=== PATIENT | male | born 1970 | race Caucasian/White ===

== ENCOUNTER 2018-11-16 09:58 | Observation (INO) | payer MEDICAID, OTHER, SELFPAY ==
[~2018-11-16] VITALS: Ht 180.3 cm; Wt 111.2 kg
--- NOTE | 2018-11-16 10:33 | NUR ---
First contact with pt. IMMANUEL. Pt resting on gurney connected to NIBP, continous pulse ox, and global account executive. Call light within reach. Pt states, "I have had dental pain since Wednesday or Wednesday, I have horrible teeth, I am on blood thinners, and since Wednesday I have had left sided chest pain and left shoulder pain." Per pt's , "he is also a diabetic and has high blood pressure". Pt states, "I have had two DVTs, one in each leg." Pt denies cp at this time, sob, n/v/d, or diaphoresis. All safety measures in place.
[2018-11-16] MEDS ORDERED: GLIM4TAB2 PO (10:46)
[2018-11-16] MEDS ORDERED: SIMV5TAB14 PO (10:46)
[2018-11-16] MEDS ORDERED: SITA100T PO (10:46)
[2018-11-16] MEDS ORDERED: RIVA10TA2 PO (10:46)
[2018-11-16] MEDS ORDERED: LISI1TAB7 PO (10:46)
[2018-11-16] MEDS ORDERED: METF500T17 PO (10:46)
[2018-11-16] MEDS ORDERED: OMNIPAQUE 350 MG/ML, 100ML BOTTLE ONE (11:22)
[2018-11-16] MEDS ORDERED: ASPIRIN 81 MG TABLET CHEW PO ONE (11:30)
[2018-11-16 11:40] LABS: BASOPHILS # (AUTO) 0.05 x10^3/uL (0-0.1); BASOPHILS % (AUTO) 1 % (0-1); EOSINOPHILS # (AUTO) 0.18 x10^3/uL (0-0.4); EOSINOPHILS % (AUTO) 2 % (1-7); LYMPHOCYTES # (AUTO) 2.68 x10^3/uL (1-3.4); LYMPHOCYTES % (AUTO) 30 % (22-44); MD NO; MEAN CORPUSCULAR HEMOGLOBIN 31.9 pg (27.5-34.5); MEAN CORPUSCULAR HGB CONC 35.2 g/dL (33.2-36.2); MEAN CORPUSCULAR VOLUME 90.7 fL (81-97); MEAN PLATELET VOLUME 10.5 fL (7.4-10.4); MONOCYTES # (AUTO) 0.85 x10^3/uL (0.2-0.8); MONOCYTES % (AUTO) 9 % (2-9); NEUTROPHILS # (AUTO) 5.28 x10^3/uL (1.8-6.8); NEUTROPHILS % (AUTO) 58 % (42-75); PLATELET COUNT 171 x10^3/uL (130-400); RED BLOOD COUNT 5.41 x10^6/uL (4.38-5.82); RED CELL DISTRIBUTION WIDTH 12.8 % (9.4-14.8)
--- NOTE | 2018-11-16 11:47 | NUR ---
CT PENDING LAB RESULTS
[2018-11-16] MEDS ORDERED: ASPIRIN 81 MG TABLET CHEW ONE (11:49)
[2018-11-16 11:52] LABS: ALBUMIN 3.9 g/dL (3.4-5.0); ANION GAP 6 mmol/L (5-15); CALCIUM 9.1 mg/dL (8.5-10.1); CHLORIDE 104 mmol/L (98-107); CREATININE 0.89 mg/dL (0.7-1.3)
[2018-11-16 11:55] LABS: TROPONIN I < 0.015 ng/mL (0.000-0.045)
[2018-11-16] MEDS ORDERED: SODIUM CHLORIDE FLUSH 10ML SYR IVF ONE (13:00)
[2018-11-16] MEDS ORDERED: D5%-0.45NACL+KCL 20MEQ 1,000 ML IV SCH (13:24)
[2018-11-16] MEDS ORDERED: OXYcodone IR 5MG TABLET PO PRN (13:30)
[2018-11-16] MEDS ORDERED: ONDANSETRON 2MG/ML, 2ML IVPush PRN (13:30)
[2018-11-16] MEDS ORDERED: hydrALAzine 20 MG/ML, 1ML IVPush PRN (13:30)
[2018-11-16] MEDS ORDERED: MORPHINE SULFATE 4 MG/ML, 1ML IV PRN (14:00)
[2018-11-16 14:19] LABS: HEMOGLOBIN A1C 8.2 % (4.2-6.3)
[2018-11-16 14:21] LABS: CHOL/HDL RATIO 3.3; LDL/HDL RATIO 1.7 (0.5-3.0)
[2018-11-16] MEDS ORDERED: NS + 20MEQ KCL 1,000 ML IV ONE (14:28)
[2018-11-16] MEDS: NS + 20MEQ KCL 1,000 ML IV SCH (14:30)
--- NOTE | 2018-11-16 15:00 | NUR ---
REPORT FROM SILVESTRE REECE. PT LAYING IN [facility], NAD NOTED, ON PHONE. IVF INFUSING PER ORDER. BP/SPO2/ECG MONITORING IN PLACE. NSR ON MONITOR
--- NOTE | 2018-11-16 15:59 | NUR ---
PT FINISHED 100% OF CARDIAC COMPLIANT MEAL TRAY. PT AMBULATED STEADILY TO BATHROOM WO ASSISTANCE. PT REPORTS 2/10 PAIN, DENIES NEED FOR PAIN MEDICATIONS.
[2018-11-16] MEDS ORDERED: KETOROLAC 30 MG/1 ML ONE (16:14)
[2018-11-16] MEDS ORDERED: ACETAMINOPHEN 325 MG TABLET ONE (16:14)
[2018-11-16] MEDS: KETOROLAC 30 MG/1 ML IM PRN (16:17)
[2018-11-16] MEDS: ACETAMINOPHEN 325 MG TABLET PO PRN (16:17)
--- NOTE | 2018-11-16 16:20 | NUR ---
PT MEDICATED PER EMAR FOR MODERATE DENTAL PAIN
--- NOTE | 2018-11-16 17:06 | NUR ---
PT MOVED TO BEDSIDE RECLINER FOR COMFORT. PT REPORTS IMPROVEMENT IN CHRONIC BACK PAIN WITH CHAIR. MEAL TRAY PROVIDED. FAMILY AT BEDSIDE.
--- NOTE | 2018-11-16 17:52 | NUR ---
REPORT TO SILVESTRE PEREZ ON TELE. PT PREPARED FOR TRANSPORT
[2018-11-16 17:55] LABS: TROPONIN I < 0.015 ng/mL (0.000-0.045)
[2018-11-16 20:22] VITALS: BP 118/74
[2018-11-16] MEDS ORDERED: LISINOPRIL 20 MG TABLET PO SCH (21:00)
[2018-11-16] MEDS ORDERED: SIMVASTATIN 5 MG TABLET PO SCH (21:00)
[2018-11-16] MEDS ORDERED: GLIMEPIRIDE 4 MG TABLET PO SCH (21:00)
[2018-11-16] MEDS: RIVAROXABAN 10 MG TABLET PO SCH ×2 (21:12→21:15)
[2018-11-17] MEDS: NS + 20MEQ KCL 1,000 ML IV SCH (00:34)
[2018-11-17 01:04] VITALS: BP 100/61
[2018-11-17] MEDS: KETOROLAC 30 MG/1 ML IM PRN (03:48)
[2018-11-17] MEDS: ACETAMINOPHEN 325 MG TABLET PO PRN (03:51)
[2018-11-17] MEDS ORDERED: ASPIRIN 325 MG TABLET EC PO SCH (06:00)
[2018-11-17 06:14] LABS: BASOPHILS # (AUTO) 0.05 x10^3/uL (0-0.1); BASOPHILS % (AUTO) 1 % (0-1); EOSINOPHILS # (AUTO) 0.22 x10^3/uL (0-0.4); EOSINOPHILS % (AUTO) 2 % (1-7); LYMPHOCYTES % (AUTO) 28 % (22-44); MD NO; MEAN CORPUSCULAR HEMOGLOBIN 31.6 pg (27.5-34.5); MEAN CORPUSCULAR HGB CONC 34.9 g/dL (33.2-36.2); MEAN CORPUSCULAR VOLUME 90.7 fL (81-97); MEAN PLATELET VOLUME 10.3 fL (7.4-10.4); MONOCYTES # (AUTO) 0.96 x10^3/uL (0.2-0.8); MONOCYTES % (AUTO) 9 % (2-9); NEUTROPHILS # (AUTO) 6.07 x10^3/uL (1.8-6.8); NEUTROPHILS % (AUTO) 60 % (42-75); PLATELET COUNT 150 x10^3/uL (130-400); RED BLOOD COUNT 4.94 x10^6/uL (4.38-5.82); RED CELL DISTRIBUTION WIDTH 13.2 % (9.4-14.8)
[2018-11-17 06:27] LABS: ANION GAP 5 mmol/L (5-15); CALCIUM 8.4 mg/dL (8.5-10.1); CHLORIDE 112 mmol/L (98-107)
[2018-11-17 06:34] LABS: CREATININE 1.02 mg/dL (0.7-1.3); TROPONIN I < 0.015 ng/mL (0.000-0.045)
[2018-11-17 07:44] VITALS: BP 112/72
[2018-11-17] MEDS ORDERED: ACETAMINOPHEN 325 MG TABLET PO PRN (08:30)
[2018-11-17] MEDS ORDERED: MAALOX/HYOSCYAMINE/LIDOCAINE 45 ML BTL PO ONE (08:30)
[2018-11-17] MEDS ORDERED: MORPHINE SULFATE 4 MG/ML, 1ML IV PRN (08:30)
[2018-11-17] MEDS ORDERED: HYDROCHLOROTHIAZIDE 25 MG TABLET PO SCH (09:00)
[2018-11-17] MEDS ORDERED: METF500T17 PO (10:22)
[2018-11-17 12:35] VITALS: BP 116/77
[2018-11-17] MEDS ORDERED: KETOROLAC 30 MG/1 ML IM PRN (13:30)
[2018-11-17] MEDS ORDERED: metFORMIN 850 MG TABLET PO SCH (17:00)
== END 2018-11-17 16:00 | disposition home or self-care (01) ==
LOC: ED 12:08 → EDIP 13:16 → INTOOBSV 13:16 → 5SO 17:55 → DCLOUNGE 11-17 15:50
PROVIDERS: ADMIT Internal Medicine; ATTEND Internal Medicine
DX: R07.89 Other chest pain (principal); E11.65 Type 2 diabetes mellitus with hyperglycemia; I10 Essential (primary) hypertension; E66.9 Obesity, unspecified; E78.5 Hyperlipidemia, unspecified; F17.200 Nicotine dependence, unspecified, uncomplicated; Z79.01 Long term (current) use of anticoagulants; Z80.1 Family history of malignant neoplasm of trachea, bronchus and lung; Z82.49 Family history of ischemic heart disease and other diseases of the circulatory system; Z83.3 Family history of diabetes mellitus; Z86.711 Personal history of pulmonary embolism; Z86.718 Personal history of other venous thrombosis and embolism
CPT/HCPCS: 36415; 71275; 78452; 80048; 80061; 82040; 83036; 84484; 85025; 93005; 93017; 96360; 96361; 96372; 99284; A9502; C9898; G0378; J1885; J3480; Q9967